=== PATIENT | female | born 1945 | race African-American/Black ===

== ENCOUNTER → 2018-05-07 | Outpatient (CLI) | payer MEDICARE, BC ==
--- NOTE | 2018-05-07 12:09 | Diagnostic Imaging Report ---
TECHNIQUE: Magnetic resonance imaging of the right SHOULDER was performed WITHOUT injected contrast. COMPARISON: None available. HISTORY: shoulder pain FINDINGS: MUSCLES AND TENDONS: Rotator Cuff: Tendons: Mild tendinopathy with thickening and small interstitial tear. Muscles: No focal muscle atrophy. Biceps Tendon: The long head of the biceps tendon is intact and within the intertubercular groove. GLENOHUMERAL JOINT: Glenoid Labrum: Intact Articular Cartilage: Partial-thickness cartilage loss AC JOINT AND ACROMION: Mild hypertrophic degenerative changes of the acromioclavicular joint. The acromion is unremarkable. BONE: No acute fracture. SOFT TISSUES: Otherwise, the soft tissues appear unremarkable. IMPRESSION: Rotator cuff tendinosis with small interstitial tear of the supraspinatus/infraspinatus. 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 Signed by: Dr. Ever Anderson M.D. on 05/07/2018 12:06 PM
--- NOTE | 2018-05-07 15:04 | Diagnostic Imaging Report ---
TECHNIQUE: Magnetic resonance imaging of the LEFT SHOULDER was performed WITHOUT injected contrast. COMPARISON: None available. HISTORY: Pain FINDINGS: MUSCLES AND TENDONS: Rotator Cuff: Tendons: Rotator cuff tendons are intact. Muscles: No focal muscle atrophy. Biceps Tendon: The long head of the biceps tendon is mildly subluxed medially. Intra-articular tendinosis. GLENOHUMERAL JOINT: Glenoid Labrum: Superior labral fraying and posterior labral tearing. Articular Cartilage: Areas of high-grade cartilage loss with subchondral cystic change. AC JOINT AND ACROMION: Mild hypertrophic degenerative changes of the acromioclavicular joint. The acromion is unremarkable. BONE: No acute fracture. SOFT TISSUES: Mild subacromial subdeltoid bursal fluid. IMPRESSION: Advanced glenohumeral degenerative arthrosis. Intact rotator cuff. Signed by: Dr. Ever Anderson M.D. on 05/07/2018 3:01 PM
== END ==
LOC: EDSEX 09:55 → MRI 09:55
PROVIDERS: ATTEND Specialist
DX: M25.512 Pain in left shoulder (principal); M25.511 Pain in right shoulder; M19.012 Primary osteoarthritis, left shoulder; S46.811A Strain of other muscles, fascia and tendons at shoulder and upper arm level, right arm, initial encounter

== ENCOUNTER → 2021-04-28 | Day surgery (SDC) | payer MEDICARE, BC ==
[2021-04-26 13:37] LABS: BASOPHILS % 0.3 % (0.0-1.0); EOSINOPHILS # (AUTO) 0.3 (0.0-0.4); EOSINOPHILS % 2.6 % (0.0-6.0); HEMATOCRIT 37.5 % (34.2-44.1); HEMOGLOBIN 11.7 g/dL (12.0-16.0); LYMPHOCYTES # (AUTO) 2.4 (1.0-3.2); LYMPHOCYTES % 24.2 % (18.0-39.1); MEAN CORPUSCULAR HEMOGLOBIN 30.5 pg (28-32); MEAN CORPUSCULAR HGB CONC 31.2 g/dL (31-35); MEAN CORPUSCULAR VOLUME 97.9 fL (81-99); MONOCYTES # (AUTO) 0.9 (0.2-0.8); MONOCYTES % 9.1 % (4.4-11.3); NEUTROPHILS # (AUTO) 6.3 (2.1-6.9); NEUTROPHILS % 63.5 % (38.7-80.0); PLATELET COUNT 212 x10e3/uL (140-360); RED BLOOD COUNT 3.83 x10e6/uL (3.6-5.1); RED CELL DISTRIBUTION WIDTH 13.8 % (11.7-14.4)
[~2021-04-28] MED LIST: ATENOLOL50 MG PO; FENTANYL CITRATE/PF 100MCG/2 ML INJ ONE; FUROSEMIDE40 MG PO; HYOSCYAMINE SULFATE 0.5 MG/ML INJ ONE; LIDOCAINE HCL 2% LOCAL INJ 5 ML SDV VIAL INJ ONE; LOSARTAN POTAS100 MG PO; MIDAZOLAM HCL 2 MG/2 ML VIAL ONE; POTASSIUM CHLO20 ME1 PO; PROPOFOL IV EMULSION 10 MG/ML 20 ML VIAL ONE
[2021-04-28 08:55] VITALS: BP 158/79
== END | disposition home or self-care (01) ==
LOC: OR 06:04
PROVIDERS: ATTEND Internal Medicine Gastroenterology
DX: Z09 Encounter for follow-up examination after completed treatment for conditions other than malignant neoplasm (principal); K63.5 Polyp of colon; K57.30 Diverticulosis of large intestine without perforation or abscess without bleeding; K64.8 Other hemorrhoids; Z71.3 Dietary counseling and surveillance; I10 Essential (primary) hypertension; Z88.0 Allergy status to penicillin; Z88.8 Allergy status to other drugs, medicaments and biological substances; Z01.810 Encounter for preprocedural cardiovascular examination; Z01.812 Encounter for preprocedural laboratory examination; Z20.822 Contact with and (suspected) exposure to COVID-19; Z79.82 Long term (current) use of aspirin; Z79.899 Other long term (current) drug therapy; Z68.37 Body mass index [BMI] 37.0-37.9, adult
CPT/HCPCS: 36415; 45380; 45385; 85025; 88305; 93005; J1980; J2001; J2250; J2704; J3010; U0002; 45378

== ENCOUNTER 2021-07-02 10:58 | Inpatient (IN) | payer MEDICARE, BC ==
[~2021-07-02] VITALS: Ht 152.4 cm; Wt 90.7 kg
[~2021-07-02 10:58] MED LIST changes: -FENTANYL CITRATE/PF 100MCG/2 ML INJ ONE; -HYOSCYAMINE SULFATE 0.5 MG/ML INJ ONE; -LIDOCAINE HCL 2% LOCAL INJ 5 ML SDV VIAL INJ ONE; -MIDAZOLAM HCL 2 MG/2 ML VIAL ONE; -PROPOFOL IV EMULSION 10 MG/ML 20 ML VIAL ONE
[2021-07-02] MEDS ORDERED: SODIUM CHLORIDE FLUSH 10 ML SYR INJ PRN (13:15)
[2021-07-02] MEDS ORDERED: ONDANSETRON HCL INJ 2MG/ML 2ML 2 MG/ML VIAL IV PRN (13:15)
[2021-07-02 15:30] VITALS: BP 169/87
[2021-07-02] MEDS ORDERED: CETIRIZINE HCL10 MG PO (18:09)
[2021-07-02] MEDS ORDERED: ASPIRIN81 MG PO (18:09)
[2021-07-02] MEDS ORDERED: METOPROLOL TAR100 MG PO (18:10)
[2021-07-02] MEDS ORDERED: HYDRALAZINE HC100 MG PO (18:10)
[2021-07-02 20:00] VITALS: BP 156/61
[2021-07-02 21:00] VITALS: BP 156/61
[2021-07-03] VITALS (8 sets, daily range): BP systolic 149–184; BP diastolic 64–83
[2021-07-03] MEDS ORDERED: LORATADINE 10 MG TAB PO PRN (11:00)
[2021-07-03] MEDS: POTASSIUM CHLORIDE 20 MEQ TAB CR PO SCH (11:54)
[2021-07-03] MEDS: OLMESARTAN 20 MG TAB PO SCH (11:54)
[2021-07-03] MEDS: FUROSEMIDE 40 MG TAB PO SCH (11:55)
[2021-07-03] MEDS: METOPROLOL TARTRATE 50 MG TAB PO SCH ×2 (11:55→17:00)
[2021-07-03] MEDS: HYDRALAZINE HCL 25 MG TAB PO SCH ×2 (11:56→17:01)
[2021-07-04] VITALS (8 sets, daily range): BP systolic 147–179; BP diastolic 57–90
[2021-07-04] MEDS: HYDRALAZINE HCL 25 MG TAB PO SCH ×4 (00:39→17:03)
[2021-07-04] MEDS: OLMESARTAN 20 MG TAB PO SCH (08:23)
[2021-07-04] MEDS: ASPIRIN 81 MG CHEW TAB PO SCH (08:23)
[2021-07-04] MEDS: POTASSIUM CHLORIDE 20 MEQ TAB CR PO SCH (08:24)
[2021-07-04] MEDS: METOPROLOL TARTRATE 50 MG TAB PO SCH ×2 (08:25→17:04)
[2021-07-04] MEDS: FUROSEMIDE 40 MG TAB PO SCH (08:26)
[2021-07-05 00:02] VITALS: BP 150/61
[2021-07-05] MEDS: HYDRALAZINE HCL 25 MG TAB PO SCH ×3 (00:06→14:04)
[2021-07-05 04:00] VITALS: BP 158/72
[2021-07-05 05:31] LABS: BASOPHILS % 0.4 % (0.0-1.0); EOSINOPHILS # (AUTO) 0.2 (0.0-0.4); EOSINOPHILS % 2.1 % (0.0-6.0); HEMATOCRIT 32.9 % (34.2-44.1); HEMOGLOBIN 10.4 g/dL (12.0-16.0); LYMPHOCYTES % 20.2 % (18.0-39.1); MEAN CORPUSCULAR HEMOGLOBIN 31.1 pg (28-32); MEAN CORPUSCULAR HGB CONC 31.6 g/dL (31-35); MEAN CORPUSCULAR VOLUME 98.5 fL (81-99); MONOCYTES # (AUTO) 1.1 (0.2-0.8); MONOCYTES % 11.2 % (4.4-11.3); NEUTROPHILS # (AUTO) 6.3 (2.1-6.9); NEUTROPHILS % 65.5 % (38.7-80.0); PLATELET COUNT 218 x10e3/uL (140-360); RED BLOOD COUNT 3.34 x10e6/uL (3.6-5.1); RED CELL DISTRIBUTION WIDTH 13.3 % (11.7-14.4)
[2021-07-05 05:38] LABS: ALBUMIN 2.6 g/dL (3.5-5.0); ALBUMIN/GLOBULIN RATIO 0.8 (0.8-2.0); ANION GAP 10.5 mmol/L (8-16); CALCIUM 8.6 mg/dL (8.4-10.2); CREATININE, SERUM 0.77 mg/dL (0.57-1.11); POTASSIUM 3.5 mmol/L (3.5-5.1)
[2021-07-05 08:02] VITALS: BP 165/68
[2021-07-05 08:07] VITALS: BP 165/68
[2021-07-05] MEDS: POTASSIUM CHLORIDE 20 MEQ TAB CR PO SCH (08:47)
[2021-07-05] MEDS: METOPROLOL TARTRATE 50 MG TAB PO SCH (08:47)
[2021-07-05] MEDS: FUROSEMIDE 40 MG TAB PO SCH (08:47)
[2021-07-05] MEDS: OLMESARTAN 20 MG TAB PO SCH (08:47)
[2021-07-05] MEDS: ASPIRIN 81 MG CHEW TAB PO SCH (08:47)
[2021-07-05] MEDS ORDERED: ONDANSETRON HCL 4 MG ORAL DISINTEGRATING TAB PO PRN (10:30)
[2021-07-05 11:55] VITALS: BP 122/55
[2021-07-05 16:30] VITALS: BP 155/68
== END 2021-07-05 16:33 | disposition home or self-care (01) | DRG 305 ==
LOC: FSED 11:10 → ERHOLD 13:13 → MED/SURG2 15:21 → OBSVTOIN 07-03 11:05 → MED/SURG 07-04 21:15
PROVIDERS: ADMIT Internal Medicine; ATTEND Internal Medicine
DX: I16.0 Hypertensive urgency (principal); I10 Essential (primary) hypertension; Z88.1 Allergy status to other antibiotic agents; Z88.8 Allergy status to other drugs, medicaments and biological substances; Z28.310 Unvaccinated for COVID-19; Z96.652 Presence of left artificial knee joint; Z82.49 Family history of ischemic heart disease and other diseases of the circulatory system; R20.0 Anesthesia of skin
CPT/HCPCS: 36415; 70450; 70551; 80053; 81003; 82553; 82607; 83880; 84484; 85025; 93306; 93880; 99284; G0378; U0002